=== PATIENT | female | born 1965 | race Caucasian/White ===

== ENCOUNTER 2023-08-24 08:29 | Emergency (ER) | payer OTHER, SELFPAY ==
[2023-08-24] VITALS (16 sets, daily range): BP systolic 105–151; BP diastolic 61–86; PULSE 59–80; RESP 12–19; TEMP 36.7; O2SAT 95–99; BMI 27.1
--- NOTE | 2023-08-24 08:52 | DI.RAD.S_ITS ---
PROCEDURE: XR CHEST 1V INDICATIONS: chest pain TECHNIQUE: One view of the chest was acquired. COMPARISON: None. FINDINGS: Surgical changes and devices: None. Lungs and pleura: Lungs are clear. No pleural effusions or pneumothorax. Mediastinum: Mediastinal contours appear normal. Heart size is normal. Bones and chest wall: No suspicious bony lesions. Overlying soft tissues appear unremarkable. IMPRESSION: Portable chest within normal limits for age. Dictated by: Madiha Nash M.D. on 08/24/2023 at 10:02 Approved by: Madiha Nash M.D. on 08/24/2023 at 10:02
--- NOTE | 2023-08-24 08:54 | ED.CHESTPAIN ---
HPI - Chest Pain General Chief Complaint: Chest Pain Stated Complaint: N/dizzy/LT arm pain Time Seen by Provider: 08/24/23 08:47 Source: patient Mode of arrival: Ambulatory Limitations: no limitations History of Present Illness HPI narrative: Patient brought here from work by co-worker for complaints of chest pain. Patient has sharp substernal chest discomfort radiating to the neck and left arm for the past few days. Last night she broke out in a sweat. Very diaphoretic. Of recent she is had fatigue and tiredness. Patient does smoke. Has significant family history coronary artery disease. Patient has never had a stress test before. At this time no chest pain. No recent illness. No cough cold congestion fever chills. Patient has no personal history of heart attack strokes diabetes hypertension hyperlipidemia. Review of Systems Review of Systems Narrative: GENERAL: negative chills, fatigue, malaise, fever, positive sweats. HEENT: negative sinus pain, ear pain, sore throat RESPIRATORY: negative dyspnea, cough CARDIOVASCULAR: Positive chest pain, palpitations GASTROINTESTINAL: negative nausea, vomiting, abdominal pain : negative dysuria, frequency, hematuria MUSCULOSKELETAL: negative muscle or bony pain SKIN: negative rash, skin lesions NEUROLOGIC: negative weakness, numbness, positive dizziness ROS Unobtainable: All systems reviewed & are unremarkable except as noted in HPI and below Patient History Social History Smoking Status: Former smoker Smoking Status: Former smoker alcohol intake frequency: holidays/special occasions only Substance Use Type: does not use Exam Narrative Exam Narrative: GENERAL: in no distress, not toxic not dyspneic HEAD: Normocephalic. EYES: Pupils equal round ENT: Mucous membranes moist. NECK: Trachea midline. CARDIOVASCULAR: Regular rate and rhythm RESPIRATORY: Clear to auscultation. Breath sounds equal bilaterally. No wheezes, rales, or rhonchi. GASTROINTESTINAL: Abdomen soft, non-tender EXTREMITIES: No gross deformities. BACK: No flank tenderness. NEURO: AOx4. SKIN: Warm and dry PSYCH: Not anxious, is cooperative Initial Vital Signs Initial Vital Signs: Vital Signs Blood Pressure 144/73 H 08/24/23 08:33 Course Orders Ordered: ED Orders 08/24/23 10:36 EC echo doppler complete Stat 08/24/23 10:55 EKG-12 Lead Stat 08/24/23 11:03 Trop I [Troponin I] Stat 08/24/23 13:33 COVID19 -Nasal RAPID Stat Discontinued Medications Aspirin (Aspirin 81 Mg Chew Tab) 324 mg PO NOW ONE Stop: 08/24/23 08:53 Last Admin: 08/24/23 09:33 Dose: 324 mg Documented By: BEAR Vital Signs Vital signs: Vital Signs - 8 hr 08/24/23 11:00 08/24/23 11:00 08/24/23 11:30 Pulse Rate 63 59 L Respiratory Rate 13 18 Blood Pressure 123/77 Pulse Oximetry 97 97 08/24/23 11:30 08/24/23 12:00 08/24/23 12:00 Pulse Rate 61 Respiratory Rate 19 Blood Pressure 131/75 120/77 Pulse Oximetry 96 08/24/23 12:30 08/24/23 12:30 08/24/23 13:00 Pulse Rate 67 Respiratory Rate 16 Blood Pressure 119/67 105/61 Pulse Oximetry 97 08/24/23 13:00 08/24/23 13:30 Pulse Rate 67 69 Respiratory Rate 15 14 Blood Pressure Pulse Oximetry 96 96 MDM - Chest Pain Lab Data 08/24/23 08:50 08/24/23 08:50 Labs: Lab Results 08/24/23 08/24/23 08/24/23 Range/Units 08:50 11:03 13:33 WBC 8.8 (4.5-11.0) X10^3/uL RBC 4.50 (4.0-5.2) X10^6/uL Hgb 14.3 (12.0-16.0) g/dL Hct 40.4 (36-46) % MCV 89.7 (80-100) fL MCH 31.7 (26-34) PG MCHC 35.3 (30-36) % RDW 12.4 (11.6-14.8) % Plt Count 225 (150-400) X10^3/uL Neut % (Auto) 59.5 (50-75) % Lymph % (Auto) 33.0 (25-40) % [place] % (Auto) 5.5 (3-14) % Eos % (Auto) 1.4 L (2-4) % Baso % (Auto) 0.6 (0-2) % Neut # (Auto) 5200 (5113-8258) /uL Lymph # (Auto) 2900 (7120-9502) /uL Huntington # (Auto) 500 (0-900) /uL Eos # (Auto) 100 (0-450) /uL Baso # (Auto) 100 (0-100) /uL PT 11.7 (10.1-12.7) SECONDS INR 1.0 (0.9-1.3) APTT 32 (26-36) SECONDS Sodium 139 (137-145) mmol/L Potassium 3.7 (3.4-5.1) mmol/L Chloride 104 (98-107) mmol/L Carbon Dioxide 28 (22-32) mmol/L BUN 10 (7-17) mg/dL Creatinine 0.66 (0.52-1.04) mg/dL Estimated GFR > 60 (>60) mL/min BUN/Creatinine Ratio 15.2 (6-22) Glucose 106 H (70-100) mg/dL Calcium 9.4 (8.4-10.2) mg/dL Magnesium 1.8 (1.6-2.3) mg/dL Total Bilirubin 0.4 (0.2-1.3) mg/dL AST 33 (14-36) IU/L ALT 38 H (<35) IU/L Alkaline Phosphatase 79 (38-126) U/L Total Creatine Kinase 52 (30-135) U/L Troponin I < 0.012 < 0.012 (0.01-0.034) ng/mL Total Protein 8.1 (6.3-8.2) g/dL Albumin 4.7 (3.5-5.0) g/dL Globulin 3.4 (1.7-4.1) g/dL Albumin/Globulin Ratio 1.4 (1.0-2.8) Lipase 380 H (23-300) U/L SARS-CoV-2 (PCR) Negative (Negative) Imaging Data Chest x-ray: Radiologist's Impression: [address] [address] XRay Report Signed Patient: Kaity Cantrell MR#: [id number] : 1965 Acct:[id number] Age/Sex: 57 / F Date of Service: 08/24/23 Loc: ED Accession Number: [id number] Procedure: XR chest 1V Ordering Provider: Paulina Aguilar MD PROCEDURE: XR CHEST 1V INDICATIONS: chest pain TECHNIQUE: One view of the chest was acquired. COMPARISON: None. FINDINGS: Surgical changes and devices: None. Lungs and pleura: Lungs are clear. No pleural effusions or pneumothorax. Mediastinum: Mediastinal contours appear normal. Heart size is normal. Bones and chest wall: No suspicious bony lesions. Overlying soft tissues appear unremarkable. IMPRESSION: Portable chest within normal limits for age. Dictated by: Madiha Nash M.D. on 08/24/2023 at 10:02 Approved by: Madiha Nash M.D. on 08/24/2023 at 10:02 Echocardiogram: Radiologist's Impression: [address] [address] Echocardiography Report Signed Patient: Kaity Cantrell MR#: [id number] : 1965 Acct:[id number] Age/Sex: 57 / F Date of Service: 08/24/23 Loc: ED Accession Number: [id number] Procedure: EC echo doppler complete Ordering Provider: Paulina Aguilar MD [facility] +---------+ [facility] +---------+ : : [address] [place] [address]. : : : : [place], [place] : : : : [id number] : : : : Phone: [phone]+ Echocardiogram Report + + :Name: KAITY CANTRELL Study Date: 08/24/2023 Height: 67 in : :Hospital ReadingLocation: Weight: 173 lb : : Gender: Female BSA: 1.9 m2 : :: 1965 Age: 57 yrs BP: 105/61 mmHg: :Reason For Study: Chest Pain : :Ordering Physician: LAUREN : :PAULINA Performed By: Doris Cheatham : :Referring: PAULINA AGUILAR : + + Interpretation Summary The ejection fraction is estimated to be 55-60%. Diastolic parameters suggest probable normal left ventricular diastolic function and normal filling pressures. The right ventricle is normal in size and function. No significant valvular abnormalities. Pulmonary artery pressures cannot be estimated because of the lack of a measurable TR jet velocity but the IVC suggests a CVP of around 3 mmHg. Procedure: A two-dimensional transthoracic echocardiogram with color flow and Doppler was performed. The study quality was technically adequate. There is no prior echocardiogram noted for this patient. The patient was in normal sinus rhythm during the exam. Left Ventricle: The left ventricle is normal in size and wall thickness. The ejection fraction is estimated to be 55-60%. Diastolic parameters suggest probable normal left ventricular diastolic function and normal filling pressures. Right Ventricle: The right ventricle is normal in size and function. Atria: The left atrial size is normal. Right atrial size is normal. There is no Doppler evidence for an interatrial shunt. Mitral Valve: The mitral valve is normal. There is no mitral valve stenosis. There is trace mitral regurgitation. Aortic Valve: The aortic valve is trileaflet. The aortic valve opens well. There is no aortic valve stenosis. There is trace aortic regurgitation. Tricuspid Valve: The tricuspid valve is normal. There is no tricuspid stenosis. There is trace tricuspid regurgitation. Pulmonary artery pressures cannot be estimated because of the lack of a measurable TR jet velocity but the IVC suggests a CVP of around 3 mmHg. Pulmonic Valve: The pulmonic valve is not well visualized. There is no pulmonic valvular stenosis. There is trace pulmonic regurgitation. Great Vessels: The aortic root is normal size. The ascending aorta is normal in size. The pulmonary artery is normal size. The IVC is of normal diameter and collapses greater than 50% with a sniff. This suggests a low right atrial pressure of 3 mm Hg. Pericardium/ Pleura There is no pericardial effusion. There is no pleural effusion. MMode/2D Measurements & Calculations LVIDd: 3.9 cm LVOT diam: 1.9 cm LVIDs: 2.8 cm Ao root diam: 3.2 cm FS: 28.2 % asc Aorta Diam: 3.3 cm EPSS: 0.50 cm IVSd: 0.78 cm LVPWd: 0.90 cm LV ford. diameter/BSA (cm/m^2): 2.1 LV sys. diameter/BSA (cm/m^2): 1.5 LA A2 area: 12.4 cm2 RA long axis: 4.0 cm LA A4 area: 10.1 cm2 RA area: 9.9 cm2 LA length (vol): 4.5 cm RA vol: 20.6 ml LA vol: 23.8 ml RA : 10.8 ml/m2 LA vol index: 12.5 ml/m2 RVD1 (basal): 3.1 cm LVLs ap4: 6.3 cm LVLd ap2: 7.7 cm TAPSE_phl: 2.2 cm LVLs ap2: 6.5 cm Doppler Measurements & Calculations Ao V2 max: 127.7 cm/sec LVOT Max Vignesh: 89.6 cm/sec Ao V2 mean: 86.7 cm/sec LV V1 max P.2 mmHg Ao max P.0 mmHg LV V1 VTI: 19.3 cm Ao mean P.7 mmHg FLORINA(I,D): 2.0 cm2 Ao V2 VTI: 28.0 cm FLORINA(V,D): 2.0 cm2 sev ratio: 0.69 FLORINA indexed to BSA (cm^2/m^2): 1.0 MV E max vignesh: 80.2 cm/sec PA V2 max: 88.1 cm/sec MV A max vignesh: 54.9 cm/sec PA V2 mean: 56.7 cm/sec MV E/A: 1.5 PA mean P.0 mmHg Med Peak E' Vignesh: 7.9 cm/sec PA pr(Accel): 12.4 mmHg E/E' med: 10.1 Lat Peak E' Vignesh: 11.5 cm/sec E/E' lat: 7.0 E/e' average: 8.5 MV dec time: 0.18 sec SV(LVOT): 54.6 ml AV VR_phl: 0.70 FLORINA(VTI)/BSA_phl: 1.0 Reading Physician:03:04 PM [facility] Narrative Medical decision making narrative: Patient brought here from work by co-worker for complaints of chest pain. Patient has sharp substernal chest discomfort radiating to the neck and left arm for the past few days. Last night she broke out in a sweat. Very diaphoretic. Of recent she is had fatigue and tiredness. Patient does smoke. Has significant family history coronary artery disease. Patient has never had a stress test before. At this time no chest pain. No recent illness. No cough cold congestion fever chills. Patient has no personal history of heart attack strokes diabetes hypertension hyperlipidemia. After history and exam CBC CMP troponin EKG chest x-ray aspirin MDM CC: Chest pain Complicating co-morbidities: Smoker Data collected from: Patient Medical records reviewed: No recent visit for this complaint Differential considered: Includes but not limited to STEMI non-STEMI angina atypical chest pain pulmonary embolism pneumonia costochondritis Exam documented above, pertinent findings include: Nontender chest Lab Test results independently reviewed as above. Pertinent findings: WBC 8.8 hemoglobin 14.3 INR 1.0 sodium 139 potassium 3.7 GFR greater than 60 troponin less than 0.012 Independently reviewed EKG normal sinus rhythm rate [address] elevation or depression. Normal EKG Imaging studies independently reviewed: Chest x-ray no acute finding Echocardiogram no acute finding Consultations: Patient left against medical advice Treatments: Aspirin Re-evaluations: 10:25 a.m. Reviewed results with patient. At this time there reassuring however patient family history and symptoms or concerning and needs admission for chest pain rule out stress test echocardiogram however we do not have those facilities/resources here this weekend. She does understand will need for transfer. Currently chest pain-free. 2:34 p.m.. at bedside. Patient no longer desires to be admitted observed or transferred. Implored with her and her to continue waiting for bed availability. They do understand it is difficult to get a bed but we do have patient on waiting lists. Risk of leaving against medical advice includes but not limited to heart attack per my injury loss of limb or organ or worsening symptoms. Benefits include stress test and observation. She is awake alert oriented x4 at time of making decision Discussion: Appropriate for transfer. We do not have stress test echocardiogram available this weekend. Currently chest pain-free. With significant family history of coronary disease and concerning symptoms patient has endured recently., will need stress test urgently Diagnosis: Acute chest pain Discharge Plan Departure Patient Disposition: Left Against Medical Advice Clinical Impression: Chest pain Qualifiers: Chest pain type: unspecified Qualified Code(s): R07.9 - Chest pain, unspecified Instructions: Refusal of Consent to Treatment (Against Medical Advice) Activity Restrictions/Additional Instructions: Return immediately if you change your mind to have continued treatment/monitoring and testing for your chest pain. Referrals: Miscellaneous,Doctor, MD [Primary Care Provider] - Stand Alone Forms: Patient Portal/API, Against Medical Advice
[2023-08-24 09:06] LABS: Prothrombin Time 11.7 SECONDS (10.1-12.7)
[2023-08-24 09:07] LABS: Add Manual Diff / Slide Review NO; Basophils Absolute Auto 100 /uL (0-100); Basophils Percent Auto 0.6 % (0-2); Eosinophils Absolute Auto 100 /uL (0-450); Eosinophils Percent Auto 1.4 % (2-4); Hematocrit 40.4 % (36-46); Hemoglobin 14.3 g/dL (12.0-16.0); Lymphocytes Absolute Auto 2900 /uL (1100-4500); Mean Corpuscular HGB Conc 35.3 % (30-36); Mean Corpuscular Hemoglobin 31.7 PG (26-34); Mean Corpuscular Volume 89.7 fL (80-100); Monocytes Absolute Auto 500 /uL (0-900); Monocytes Percent Auto 5.5 % (3-14); Neutrophils Absolute Auto 5200 /uL (1500-7000); Neutrophils Percent Auto 59.5 % (50-75); Platelet Count 225 X10^3/uL (150-400); Red Cell Distribution Width 12.4 % (11.6-14.8); White Blood Cell Count 8.8 X10^3/uL (4.5-11.0)
[2023-08-24 09:09] LABS: PTT Partial Thromboplastin Tim 32 SECONDS (26-36)
[2023-08-24 09:11] LABS: Alanine Aminotransferase 38 IU/L (<35); Albumin 4.7 g/dL (3.5-5.0); Albumin Globulin Ratio 1.4 (1.0-2.8); Alkaline Phosphatase 79 U/L (38-126); Aspartate Aminotransferase 33 IU/L (14-36); BUN Creatinine Ratio 15.2 (6-22); Bilirubin Total 0.4 mg/dL (0.2-1.3); Blood Urea Nitrogen 10 mg/dL (7-17); Calcium 9.4 mg/dL (8.4-10.2); Carbon Dioxide 28 mmol/L (22-32); Chloride 104 mmol/L (98-107); Creatine Kinase 52 U/L (30-135); Estimated Glomerular Filt Rate > 60 mL/min (>60); Globulin 3.4 g/dL (1.7-4.1); Glucose 106 mg/dL (70-100); HEMOLYSIS < 15 (0-50); Lipase 380 U/L (23-300); Magnesium 1.8 mg/dL (1.6-2.3); Potassium 3.7 mmol/L (3.4-5.1); Sodium 139 mmol/L (137-145); Total Protein 8.1 g/dL (6.3-8.2)
[2023-08-24 09:22] LABS: Troponin I < 0.012 ng/mL (0.01-0.034)
[2023-08-24] MEDS: ASPIRIN 81 MG CHEW TAB 324 MG PO (09:33)
--- NOTE | 2023-08-24 10:36 | DI.ECHO.S_ITS ---
[facility] +---------+ [facility] +---------+ : : [address] : [place] : : : : [address] : : : : Phone: [phone]+ Echocardiogram Report + + :Name: KAITY LOUIS Study Date: 08/24/2023 Height: 67 in : :[facility] ReadingLocation: Weight: 173 lb : : Gender: Female BSA: 1.9 m2 : :: 1965 Age: 57 yrs BP: 105/61 mmHg: :Reason For Study: Chest Pain : :Ordering Physician: LAUREN, : :PAULINA Performed By: Doris Cheatham : :Referring: PAULINA AGUILAR : + + Interpretation Summary The ejection fraction is estimated to be 55-60%. Diastolic parameters suggest probable normal left ventricular diastolic function and normal filling pressures. The right ventricle is normal in size and function. No significant valvular abnormalities. Pulmonary artery pressures cannot be estimated because of the lack of a measurable TR jet velocity but the IVC suggests a CVP of around 3 mmHg. Procedure: A two-dimensional transthoracic echocardiogram with color flow and Doppler was performed. The study quality was technically adequate. There is no prior echocardiogram noted for this patient. The patient was in normal sinus rhythm during the exam. Left Ventricle: The left ventricle is normal in size and wall thickness. The ejection fraction is estimated to be 55-60%. Diastolic parameters suggest probable normal left ventricular diastolic function and normal filling pressures. Right Ventricle: The right ventricle is normal in size and function. Atria: The left atrial size is normal. Right atrial size is normal. There is no Doppler evidence for an interatrial shunt. Mitral Valve: The mitral valve is normal. There is no mitral valve stenosis. There is trace mitral regurgitation. Aortic Valve: The aortic valve is trileaflet. The aortic valve opens well. There is no aortic valve stenosis. There is trace aortic regurgitation. Tricuspid Valve: The tricuspid valve is normal. There is no tricuspid stenosis. There is trace tricuspid regurgitation. Pulmonary artery pressures cannot be estimated because of the lack of a measurable TR jet velocity but the IVC suggests a CVP of around 3 mmHg. Pulmonic Valve: The pulmonic valve is not well visualized. There is no pulmonic valvular stenosis. There is trace pulmonic regurgitation. Great Vessels: The aortic root is normal size. The ascending aorta is normal in size. The pulmonary artery is normal size. The IVC is of normal diameter and collapses greater than 50% with a sniff. This suggests a low right atrial pressure of 3 mm Hg. Pericardium/ Pleura There is no pericardial effusion. There is no pleural effusion. MMode/2D Measurements & Calculations LVIDd: 3.9 cm LVOT diam: 1.9 cm LVIDs: 2.8 cm Ao root diam: 3.2 cm FS: 28.2 % asc Aorta Diam: 3.3 cm EPSS: 0.50 cm IVSd: 0.78 cm LVPWd: 0.90 cm LV ford. diameter/BSA (cm/m^2): 2.1 LV sys. diameter/BSA (cm/m^2): 1.5 LA A2 area: 12.4 cm2 RA long axis: 4.0 cm LA A4 area: 10.1 cm2 RA area: 9.9 cm2 LA length (vol): 4.5 cm RA vol: 20.6 ml LA vol: 23.8 ml RA : 10.8 ml/m2 LA vol index: 12.5 ml/m2 RVD1 (basal): 3.1 cm LVLs ap4: 6.3 cm LVLd ap2: 7.7 cm TAPSE_phl: 2.2 cm LVLs ap2: 6.5 cm Doppler Measurements & Calculations Ao V2 max: 127.7 cm/sec LVOT Max Vignesh: 89.6 cm/sec Ao V2 mean: 86.7 cm/sec LV V1 max P.2 mmHg Ao max P.0 mmHg LV V1 VTI: 19.3 cm Ao mean P.7 mmHg FLORINA(I,D): 2.0 cm2 Ao V2 VTI: 28.0 cm FLORINA(V,D): 2.0 cm2 sev ratio: 0.69 FLORINA indexed to BSA (cm^2/m^2): 1.0 MV E max vignesh: 80.2 cm/sec PA V2 max: 88.1 cm/sec MV A max vignesh: 54.9 cm/sec PA V2 mean: 56.7 cm/sec MV E/A: 1.5 PA mean P.0 mmHg Med Peak E' Vignesh: 7.9 cm/sec PA pr(Accel): 12.4 mmHg E/E' med: 10.1 Lat Peak E' Vignesh: 11.5 cm/sec E/E' lat: 7.0 E/e' average: 8.5 MV dec time: 0.18 sec SV(LVOT): 54.6 ml AV VR_phl: 0.70 FLOIRNA(VTI)/BSA_phl: 1.0 Reading Physician:03:04 PM
[2023-08-24 11:40] LABS: Troponin I < 0.012 ng/mL (0.01-0.034)
[2023-08-24 14:00] LABS: COVID19 -Nasal RAPID Negative (Negative)
--- NOTE | 2023-08-24 14:03 | PC.NURSE ---
pt updated that provider would like to try and get her a stress test done today and we are unable to scheduled her so we are making calls. She requests to speak with provider about scheduling this as an outpatient procedure. provider notified, going to speak with patient after echo is done
== END 2023-08-24 14:52 | disposition left against medical advice (07) ==
PROVIDERS: Emergency Provider Emergency Medicine
DX: R07.9 Chest pain, unspecified (principal); Z20.822 Contact with and (suspected) exposure to COVID-19
CPT/HCPCS: 36415; 71045; 80053; 82550; 83690; 83735; 84484; 85025; 85610; 85730; 87635; 93005; 93306; 99284; C9803